=== PATIENT | female | born 1995 | race Caucasian/White ===

== ENCOUNTER 2018-08-15 22:35 | Emergency (ER) | payer BC ==
[~2018-08-15] VITALS: Ht 160 cm; Wt 86.4 kg
[2018-08-15 22:38] VITALS: Ht 160 cm; Wt 86.4 kg
[2018-08-15] MEDS ORDERED: HYDROCODON-ACE1 EAC2 PO (23:48)
[2018-08-16 00:03] VITALS: BP 119/70
== END 2018-08-16 00:03 | disposition home or self-care (01) ==
LOC: D.ER 22:35
DX: S02.5XXA Fracture of tooth (traumatic), initial encounter for closed fracture (principal); X58.XXXA Exposure to other specified factors, initial encounter; Y93.89 Activity, other specified; Y92.89 Other specified places as the place of occurrence of the external cause; K02.9 Dental caries, unspecified; K08.89 Other specified disorders of teeth and supporting structures